=== PATIENT | female | born 1960 | race Asian ===

== ENCOUNTER 2022-06-07 17:19 | Emergency (ER) | payer MEDICAID, SELFPAY ==
[2022-06-07 18:19] VITALS: BP 140/89; PULSE 76; RESP 18; TEMP 37; O2SAT 97; BMI 25.9
--- NOTE | 2022-06-07 18:21 | ECG_ITS ---
Test Reason : abnormal labs Blood Pressure : / mmHG Vent. Rate : 072 BPM Atrial Rate : 072 BPM P-R Int : 168 ms QRS Dur : 094 ms QT Int : 410 ms P-R-T Axes : 017 029 091 degrees QTc Int : 448 ms Normal sinus rhythm Inferior-posterior infarct , age undetermined ST & T wave abnormality, consider lateral ischemia Abnormal ECG No previous ECGs available Referred By: Generic ED Physician Electronically Signed By:KEANU TRIMBLE MD
[2022-06-07 19:12] LABS: MANUAL DIFF FLAG NO
[2022-06-07 19:20] LABS: Basophils Percent Auto 0.2 % (0-2); Eosinophils Absolute Auto 0.1 X10*3/uL (0.0-0.4); Hematocrit 38.9 % (37.0-47.0); Hemoglobin 13.8 g/dl (12.0-16.0); Imm Gran Abs Auto 0.04 X10*3/uL (0.00-0.03); Imm Gran Pct Auto 0.5 % (0.0-0.4); Lymphocytes Percent Auto 24.2 % (20-40); Mean Corpuscular HGB Conc 35.5 g/dl (31.0-35.0); Mean Corpuscular Hemoglobin 31.2 pg (27.0-33.0); Mean Platelet Volume 9.1 fL (9.4-12.3); Monocytes Absolute Auto 0.6 X10*3/uL (0.1-1.2); Monocytes Percent Auto 6.9 % (2-11); Neutrophils Absolute Auto 5.5 x10*3/uL (2.0-8.3); Neutrophils Percent Auto 67.2 % (45-73); Platelet Count 192 X10*3/uL (160-400); Red Blood Count 4.42 X10*6/uL (4.20-5.50); White Blood Count 8.3 X10*3/uL (4.8-10.8)
[2022-06-07 20:48] LABS: Alanine Aminotransferase 39 U/L (0-31); Albumin Level 4.3 g/dL (3.5-5.0); Alkaline Phosphatase 64 U/L (39-117); Anion Gap 16 (12-20); Aspartate Amino Transferase 32 U/L (5-31); Bilirubin Direct 0.3 mg/dL (0.0-0.5); Bilirubin Total 0.8 mg/dL (0.0-1.0); Blood Urea Nitrogen 12 mg/dL (9-16); Calcium 9.2 mg/dL (8.4-10.2); Carbon Dioxide 29 mmol/L (22-29); Chloride 92 mmol/L (96-108); Creatinine Clr Calc Pharmacy 44.6; Estimated Glomerular Filt Rate > 60; Glucose Random 171 mg/dL (60-115); Potassium 2.3 mmol/L (3.3-5.1); Sodium 135 mmol/L (135-145); Total Protein 7.4 g/dL (6.5-8.0)
[2022-06-07 21:02] VITALS: BP 128/87; PULSE 67; RESP 20; TEMP 36.7; O2SAT 99
--- NOTE | 2022-06-07 21:36 | ED.GENADULT ---
HPI - General Adult General Chief complaint: Recheck/Abnormal Lab/Rx Stated complaint: abnormal labs Time Seen by Provider: 06/07/22 18:52 History of Present Illness HPI narrative: Patient is a 61-year-old female with a history of hypertension. About 2 months ago was started on a water pill. She was started on chlorothiadone. Had routine blood drawn today. Noted to have a low potassium of 2.4. Sent in for further evaluation. Patient has no specific complaints. Related Data Allergies Allergy/AdvReac Type Severity Reaction Status Date / Time No Known Allergies Allergy Verified 06/07/22 18:18 Review of Systems Review of Systems: No fever no chills no chest pain or shortness of breath no systemic complaints Yes all other systems are reviewed and are negative [facility] Past Medical History Attestation statement: The following information was validated with the patient. Social History Social History Advance Directives: No Advance Directives Information Provided: Yes Physical Exam ED Vital Signs: Vital Signs - 24 hr 06/07/22 18:19 06/07/22 21:02 06/08/22 02:00 Temperature 98.6 F 98.1 F 98.1 F Pulse Rate 76 67 64 Respiratory Rate 18 20 18 Blood Pressure 140/89 H 128/87 113/80 Pulse Oximetry 97 99 98 Oxygen Delivery Method Room Air Room Air Room Air BMI result Body Mass Index 25.9 Appearance: Alert. Oriented X3. No acute distress. Eyes: Pupils equal, round and reactive to light. ENT: Pharynx normal. Neck: Normal inspection. Neck supple. No lymph nodes noted. No crepitus CVS: Normal heart rate and rhythm. Pulses normal. Normal S1 and S2 Respiratory: No respiratory distress. Breath sounds normal. No Wheezing. No rales Abdomen: Soft and nontender. No rigidity. No distention. good BS x4 Skin: Skin warm and dry. Normal skin color. Normal skin turgor. Extremities: No lower extremity edema. Neurovascular intact to all extremities. No Lacerations. No Rash Neuro: Oriented X 3. No motor deficit. No sensory deficit. Moving all extermities. No slurred speech Medical Decision Making MDM Narrative Medical decision making narrative: No systemic complaints. Repeat potassium was 2.4. We will go ahead and replete orally and IV. Ask patient to stop taking the diuretic. Will also replete potassium orally. Suggested patient drink lots R [place], eat banana, baked beans. Close follow-up on an outpatient basis. Repeat potassium with PMD in 24-48 hours. Potassium was repleted. Repeat potassium was 3.3. Currently in stable condition with discharge Lab Data Lab results reviewed: Yes I reviewed the patient's lab results. Result diagrams: 06/07/22 18:49 06/08/22 02:12 Labs: Lab Results 06/07/22 06/07/22 06/08/22 Range/Units 18:49 18:49 02:12 WBC 8.3 (4.8-10.8) X10*3/uL RBC 4.42 (4.20-5.50) X10*6/uL Hgb 13.8 (12.0-16.0) g/dl Hct 38.9 (37.0-47.0) % MCV 88.0 (80.0-98.0) fL MCH 31.2 (27.0-33.0) pg MCHC 35.5 H (31.0-35.0) g/dl RDW 13.0 (11.0-16.0) % Plt Count 192 (160-400) X10*3/uL MPV 9.1 L (9.4-12.3) fL Immature Gran % (Auto) 0.5 H (0.0-0.4) % Neut % (Auto) 67.2 (45-73) % Lymph % (Auto) 24.2 (20-40) % [place] % (Auto) 6.9 (2-11) % Eos % (Auto) 1.0 (0-4) % Baso % (Auto) 0.2 (0-2) % Lymph # (Auto) 2.0 (1.2-4.9) X10*3/uL [place] # (Auto) 0.6 (0.1-1.2) X10*3/uL Eos # (Auto) 0.1 (0.0-0.4) X10*3/uL Baso # (Auto) 0.0 (0.0-0.2) X10*3/uL Abs Immat Gran (auto) 0.04 H (0.00-0.03) X10*3/uL Absolute Neuts (auto) 5.5 (2.0-8.3) x10*3/uL Absolute Nucleated RBC 0.000 (0.0-0.012) X10*3/uL Nucleated RBC % (auto) 0.0 (0.0-0.2) /100WBC Sodium 135 138 (135-145) mmol/L Potassium 2.3 L* 3.3 D (3.3-5.1) mmol/L Chloride 92 L 102 (96-108) mmol/L Carbon Dioxide 29 25 (22-29) mmol/L Anion Gap 16 14 (12-20) BUN 12 10 (9-16) mg/dL Creatinine 0.95 0.75 (0.5-1.4) mg/dL Estim Creat Clear Calc 44.6 56.5 Estimated GFR > 60 > 60 Random Glucose 171 H 159 H (60-115) mg/dL Calcium 9.2 8.3 L D (8.4-10.2) mg/dL Total Bilirubin 0.8 (0.0-1.0) mg/dL Direct Bilirubin 0.3 (0.0-0.5) mg/dL AST 32 H (5-31) U/L ALT 39 H (0-31) U/L Alkaline Phosphatase 64 (39-117) U/L Total Protein 7.4 (6.5-8.0) g/dL Albumin 4.3 (3.5-5.0) g/dL Discharge Plan Discharge Clinical Impression: Acute hypokalemia Patient Disposition: Home, Self-Care Instructions: Potassium Content of Foods List (ED), Hypokalemia (ED) Additional Instructions: Please stop using the Chlorthaidone. Please eat a diet rich in potassium such as banana, apple juice, baked beans Referrals: Aydee Herrera FNP [Primary Care Provider] -
[2022-06-07] MEDS: Potassium Chloride Packet 20 MEQ PACKET 40 MEQ PO (21:43)
[2022-06-07] MEDS: KCl 40 mEq in 0.9 % Sodium Chl 40 MEQ/1,000 ML IV.SOLN 250 MEQ IV (21:57)
[2022-06-08 02:00] VITALS: BP 113/80; PULSE 64; RESP 18; TEMP 36.7; O2SAT 98
[2022-06-08 02:42] LABS: Anion Gap 14 (12-20); Blood Urea Nitrogen 10 mg/dL (9-16); Calcium 8.3 mg/dL (8.4-10.2); Carbon Dioxide 25 mmol/L (22-29); Chloride 102 mmol/L (96-108); Creatinine Clr Calc Pharmacy 56.5; Estimated Glomerular Filt Rate > 60; Glucose Random 159 mg/dL (60-115); Potassium 3.3 mmol/L (3.3-5.1); Sodium 138 mmol/L (135-145)
[2022-06-08 03:46] VITALS: BP 103/52; PULSE 64; RESP 20; O2SAT 99
== END 2022-06-08 03:54 | disposition home or self-care (01) ==
PROVIDERS: Emergency Provider Emergency Medicine Emergency Medical Services; PCP Nurse Practitioner Family
DX: R79.89 Other specified abnormal findings of blood chemistry (principal); E87.6 Hypokalemia; Z79.899 Other long term (current) drug therapy
CPT/HCPCS: 36415; 80048; 80076; 85025; 93005; 96365; 96366; 99284